=== PATIENT | male | born 1995 | race Caucasian/White ===

== ENCOUNTER 2020-01-05 15:58 | Emergency (ER) | payer SELFPAY ==
[~2020-01-05] VITALS: Ht 180.3 cm; Wt 74.8 kg
--- NOTE | 2020-01-05 16:20 | NUR ---
PATIENT CAME IN TO THE ER C/O R WRIST LACERATION S/P ACCIDENTALLY PUNCHING AND BREAKING A WINDOW. ON ROOM AIR, BREATHING EVENLY AND UNLABORED. KEPT COMFROTABLE, WILL CONTINUE TO MONITOR ACCORDINGLY.
[2020-01-05] MEDS ORDERED: LIDOCAINE 1% INJ 50 ML MDV IJ ONE (16:46)
[2020-01-05] MEDS: LIDOCAINE 1% INJ 50 ML MDV IJ ONE (16:46)
[2020-01-05] MEDS ORDERED: BACITRACIN ZINC OINT PACKET 1 EA PACKET TP ONE (18:06)
[2020-01-05] MEDS: BACITRACIN ZINC OINT PACKET 1 EA PACKET TP ONE (18:07)
[2020-01-05 18:13] VITALS: BP 125/81
--- NOTE | 2020-01-05 18:14 | NUR ---
Patient discharged to home in stable condition. Written and verbal after care instructions given. Patient verbalizes understanding of instruction.
== END 2020-01-05 18:14 | disposition home or self-care (01) ==
LOC: ER 16:00
DX: S61.511A Laceration without foreign body of right wrist, initial encounter (principal); W22.8XXA Striking against or struck by other objects, initial encounter; Y93.89 Activity, other specified; Y92.89 Other specified places as the place of occurrence of the external cause; Y99.8 Other external cause status
CPT/HCPCS: 12002; 99282; J3490

== ENCOUNTER 2020-01-09 17:52 | Emergency (ER) | payer BC ==
[~2020-01-09] VITALS: Ht 177.8 cm; Wt 74.8 kg
[2020-01-09 18:01] VITALS: BP 119/72
--- NOTE | 2020-01-09 18:19 | NUR ---
Patient discharged to home in stable condition. Written and verbal after care instructions given. Patient verbalizes understanding of instruction. Pt ambulatory with a steady gait
== END 2020-01-09 18:21 | disposition home or self-care (01) ==
LOC: ER 17:58
DX: S61.511D Laceration without foreign body of right wrist, subsequent encounter (principal); X58.XXXD Exposure to other specified factors, subsequent encounter

== ENCOUNTER 2020-01-14 13:13 | Emergency (ER) | payer BC ==
[~2020-01-14] VITALS: Ht 180.3 cm; Wt 63.5 kg
[2020-01-14 13:21] VITALS: BP 105/70
== END 2020-01-14 13:30 | disposition home or self-care (01) ==
LOC: ER 13:14
DX: S61.511D Laceration without foreign body of right wrist, subsequent encounter (principal); X58.XXXD Exposure to other specified factors, subsequent encounter

== ENCOUNTER 2024-01-05 15:55 | Emergency (ER) | payer BC ==
[~2024-01-05] VITALS: Ht 177.8 cm; Wt 77.1 kg
[2024-01-05 16:15] VITALS: BP 116/62; TEMP 98.1
[2024-01-05 16:57] VITALS: O2SAT 98
== END 2024-01-05 16:57 | disposition home or self-care (01) ==
LOC: ER 15:57
DX: S09.8XXA Other specified injuries of head, initial encounter (principal); X95.8XXA Assault by other firearm discharge, initial encounter; Y93.89 Activity, other specified; Y92.89 Other specified places as the place of occurrence of the external cause; Y99.8 Other external cause status